=== PATIENT | male | born 1960 | race Caucasian/White ===

== ENCOUNTER 2017-06-26 20:26 | Emergency (ER) | payer OTHER ==
[~2017-06-26] VITALS: Ht 177.8 cm; Wt 90.7 kg
[2017-06-26] MEDS ORDERED: ALLO300 PO (20:41)
[2017-06-26 22:00] LABS: Calcium, Ionized (POC) 1.16 mmol/L (1.10-1.46); Chloride (POC) 105 mmol/L (98-108); Glucose (ISTAT POC) 128 mg/dL (70-99); Hemoglobin (POC) 15.3 g/dL (13.5-17.5); Potassium (POC) 3.4 mmol/L (3.5-5.5); Sodium (POC) 141 mmol/L (135-148); Total CO2 (POC) 26 mmol/L (21-32)
[2017-06-26] MEDS ORDERED: Cleocin HCl300 MG PO (22:52)
[2017-06-26] MEDS ORDERED: Keflex500 MG PO (22:52)
== END 2017-06-26 23:13 | disposition home or self-care (01) ==
LOC: ER 20:26
PROVIDERS: Nurse Practitioner Family
DX: K11.20 Sialoadenitis, unspecified (principal); M10.9 Gout, unspecified; Z79.899 Other long term (current) drug therapy; Z85.46 Personal history of malignant neoplasm of prostate; Z90.79 Acquired absence of other genital organ(s); Z87.891 Personal history of nicotine dependence
CPT/HCPCS: 36415; 70491; 80047; 85014; 96365; 99284; Q9967

== ENCOUNTER → 2018-07-06 | Outpatient (CLI) | payer OTHER ==
[~2018-07-06] MED LIST: ALLO300 PO; Cleocin HCl300 MG PO; Keflex500 MG PO
== END ==
LOC: LAB SHORT 07:53 → PLD 07:53
DX: L98.0 Pyogenic granuloma (principal)
CPT/HCPCS: 88305

== ENCOUNTER → 2019-07-28 | Outpatient (CLI) | payer OTHER ==
[2019-07-28 10:16] LABS: BASOPHILS ABSOLUTE AUTO 0.02 K/mm3 (0.00-0.23); BASOPHILS PERCENT AUTO 1 % (0-2); EOSINOPHILS ABSOLUTE AUTO 0.23 K/mm3 (0.00-0.68); EOSINOPHILS PERCENT AUTO 5 % (0-6); Hematocrit 42.1 % (37.0-53.0); Hemoglobin 14.1 g/dL (13.5-17.5); IMMATURE GRAN ABSOLUTE AUTO 0.02 K/mm3 (0.00-0.10); IMMATURE GRAN PERCENT AUTO 1 % (0-1); LYMPHOCYTES ABSOLUTE AUTO 1.83 K/mm3 (0.84-5.20); LYMPHOCYTES PERCENT AUTO 41 % (21-46); MONOCYTES ABSOLUTE AUTO 0.42 K/mm3 (0.16-1.47); MONOCYTES PERCENT AUTO 10 % (4-13); Mean Corpuscular HGB 30.5 pg (26.0-34.0); Mean Corpuscular HGB Conc 33.5 g/dL (31.5-36.5); Mean Corpuscular Volume 91 fL (80-100); Mean Platelet Volume 9.8 fL (9.1-12.4); NEUTROPHILS PERCENT AUTO 43 % (41-73); Platelet Count 219 K/mm3 (150-400); RDW Coefficient Variation 13.4 % (11.7-14.2); RDW Standard Deviation 44.6 fL (35.1-46.3); Red Blood Cell Count 4.62 M/mm3 (4.30-5.90); White Blood Cell Count 4.42 K/mm3 (4.00-11.30)
[2019-07-28 11:21] LABS: Prostate Specific Antigen 0.051 ng/mL (0.000-4.000)
[2019-07-28 11:23] LABS: Alanine Aminotransfer (ALT/SGP 24 U/L (12-78); Albumin/Globulin Ratio 1.2 (0.8-1.8); Alk Phos 79 U/L (50-136); Anion Gap 3 mmol/L (6-16); Aspartate Aminotrans (AST/SGOT 17 U/L (12-37); Bilirubin, Total 0.7 mg/dL (0.1-1.0); Blood Urea Nitrogen 14 mg/dL (8-24); Bun/Creatinine Ratio 15.4 (12.0-20.0); CHOL/HDL RATIO 2.6; CO2, Blood 28 mmol/L (21-32); Calcium, Blood 9.2 mg/dL (8.5-10.1); Chloride, Blood 106 mmol/L (98-108); Cholesterol 256 mg/dL (50-200); Creatinine, Blood 0.91 mg/dL (0.60-1.20); Globulin, Blood 3.4 g/dL (2.2-4.0); Glomerular Filtration Rate >60 (60-); Glucose, Blood 97 mg/dL (70-99); HDL Cholesterol 97 mg/dL (>39); LDL/HDL RATIO 1.3; Low Density Lipoprotein Chol 123 mg/dL (0-110); Potassium, Blood 3.9 mmol/L (3.5-5.5); Sodium, Blood 137 mmol/L (136-145); Total Protein, Blood 7.4 g/dL (6.4-8.2); Triglycerides 181 mg/dL (30-160); Very Low Density Lipoprot Chol 36 mg/dL (6-32)
[2019-07-28 11:41] LABS: PSA, %Free Unable to Calculate %; PSA, Free <0.015 ng/mL
== END ==
LOC: LAB EV 10:07 → LAB SHORT 10:07
PROVIDERS: Physician Assistant; Urology
DX: E78.2 Mixed hyperlipidemia (principal); C61 Malignant neoplasm of prostate; C79.51 Secondary malignant neoplasm of bone
CPT/HCPCS: 36415; 80053; 80061; 84153; 84154; 85025

== ENCOUNTER 2021-03-11 02:36 | Emergency (ER) | payer OTHER ==
[~2021-03-11] VITALS: Ht 177.8 cm; Wt 89.8 kg
[2021-03-11] MEDS ORDERED: ONDA4ODT MM (02:47)
[2021-03-11] MEDS ORDERED: [UNRECOGNIZED DRUG - OTHER] PO (02:47)
[2021-03-11] MEDS ORDERED: CELEBREX200 MG PO (02:48)
[2021-03-11] MEDS ORDERED: OXYC5 PO (02:48)
[2021-03-11] MEDS ORDERED: Flector1 EACH UD (04:36)
== END 2021-03-11 05:02 | disposition home or self-care (01) ==
LOC: ER 02:36
DX: M84.48XA Pathological fracture, other site, initial encounter for fracture (principal); Z87.891 Personal history of nicotine dependence
CPT/HCPCS: 96374; 96375; 99283-25; J2405; J3010